=== PATIENT | male | born 1970 | race Caucasian/White ===

== ENCOUNTER → 2023-04-10 13:49 | Outpatient (CLI) | payer MEDICAID, SELFPAY ==
--- NOTE | 2023-04-10 13:50 | CT_ITS ---
FINAL REPORT TECHNIQUE: Axial images were obtained from the lung apex to the mid abdomen by computed tomography. This study was performed with techniques to keep radiation doses as low as reasonably achievable (ALARA). Individualized dose reduction techniques using automated exposure control or adjustment of mA and/or kV according to the patient's size were employed. CLINICAL HISTORY: lung cancer screening CURRENT SMOKER 1/2PPD X50 YEARS FINDINGS: CHEST CT LOW DOSE CTDI vol (mGy): 2.90 DLP (mGy-cm): 92.99 There is no axillary adenopathy. There are several borderline size mediastinal nodes. The heart is normal in size. There is no pericardial or pleural effusion. There are changes of mild emphysema and scarring. There is a calcified granuloma in the right lower lobe. There is a nodule in the right major fissure measuring 8 mm, favor an intra fissural node. Limited images of the upper abdomen are unremarkable. IMPRESSION: Lung RADS category 1. Recommend 12 month follow-up low-dose chest CT. Reviewed, Interpreted and Dictated by Wali Owens III, MD Transcribed by Kaitlin Del Toro Authenticated and [facility]
== END ==
PROVIDERS: PCP Family Medicine; Visit Provider Internal Medicine Pulmonary Disease
DX: Z87.891 Personal history of nicotine dependence (principal); Z12.2 Encounter for screening for malignant neoplasm of respiratory organs
CPT/HCPCS: 71271

== ENCOUNTER 2023-10-21 12:18 | Outpatient (CLI) | payer MEDICAID, SELFPAY ==
[2023-10-21 13:10] VITALS: PULSE 71; PULSE 76
[2023-10-21] MEDS: ALBUTEROL 0.083% 2.5 MG/3 ML NEB IH (13:10)
== END 2023-10-21 23:59 ==
LOC: RT 12:19
PROVIDERS: PCP Family Medicine; Visit Provider Internal Medicine Pulmonary Disease
DX: R06.09 Other forms of dyspnea (principal)
CPT/HCPCS: 94060; 94640

== ENCOUNTER 2024-04-24 13:59 | Outpatient (CLI) | payer MEDICAID, SELFPAY ==
--- NOTE | 2024-04-24 14:00 | CT_ITS ---
FINAL REPORT TECHNIQUE: Axial images were obtained from the lung apex to the mid abdomen by computed tomography. This study was performed with techniques to keep radiation doses as low as reasonably achievable (ALARA). Individualized dose reduction techniques using automated exposure control or adjustment of mA and/or kV according to the patient's size were employed. CLINICAL HISTORY: lung cancer screening SMOKER, 1 PK PER DAY X 51 YRS COPD FAMILY HX OF LUNG CA COMPARISON: 04/10/2023 FINDINGS: CHEST CT LOW DOSE CTDI vol (mGy): 2.90 DLP (mGy-cm): 108.64 There is no axillary adenopathy. There is no hilar or mediastinal adenopathy. The heart is normal in size. There is no pericardial or pleural effusion. There is an oval nodule in the right mid lung along the major fissure well seen on image 43 measuring 5 x 3 mm. This is decreased in size compatible with intra fissural lymph node. There is a smaller similar-appearing nodule in the upper portion of the left major fissure, stable. No suspicious pulmonary nodule is identified. Limited images of the upper abdomen reveals a 10 mm left adrenal nodule with density compatible with a benign adenoma. IMPRESSION: No suspicious pulmonary nodule. Lung RADS category 1. Recommend 12 month follow-up low-dose chest CT. Reviewed, Interpreted and Dictated by Bob Lacy MD Transcribed by Kaitlin Del Toro Authenticated and [facility]
[2024-04-24] MEDS: ALBUTEROL 0.083% 2.5 MG/3 ML NEB IH (16:11)
== END 2024-04-24 23:59 | disposition home or self-care (01) ==
LOC: RAD 14:00
PROVIDERS: PCP Internal Medicine Pulmonary Disease; Visit Provider Internal Medicine Pulmonary Disease
DX: F17.210 Nicotine dependence, cigarettes, uncomplicated (principal)
CPT/HCPCS: 71271; 94060; 94726; 94729; J7613

== ENCOUNTER 2024-07-31 14:25 | Outpatient (CLI) | payer MEDICAID, SELFPAY ==
--- NOTE | 2024-07-31 14:29 | CT_ITS ---
FINAL REPORT TECHNIQUE: Axial imaging of the chest was obtained without contrast. Supine inspiration and expiration sequences and prone inspiration high-resolution sequences were obtained. This study was performed with techniques to keep radiation doses as low as reasonably achievable (ALARA). Individualized dose reduction techniques using automated exposure control or adjustment of mA and/or kV according to the patient's size were employed. CLINICAL HISTORY: nodule COMPARISON: 04/24/2024 FINDINGS: There are small and borderline mediastinal lymph nodes. There is no mediastinal or axillary mass. There is no pleural or pericardial effusion. There is mild emphysematous change. Mild scarring is seen. There is a calcified granuloma in the right lower lobe. There is a nodule at the right major fissure measuring 7 mm which is stable. Findings may represent intrafissural lymph node. There is no significant interstitial lung disease or bronchiectasis. There is no evidence of air trapping. Limited imaging of the upper abdomen demonstrates a left adrenal adenoma. There are small, nonobstructing renal stones. IMPRESSION: Stable 7 mm nodule at the right major fissure, findings may represent an intrafissural lymph node. No significant interstitial lung disease, bronchiectasis or evidence of air trapping. Reviewed, Interpreted and Dictated by Wali Owens III, MD Transcribed by Eveline Romero Authenticated and [facility]
== END 2024-07-31 23:59 | disposition home or self-care (01) ==
PROVIDERS: PCP Family Medicine; Visit Provider Internal Medicine Pulmonary Disease
DX: J84.9 Interstitial pulmonary disease, unspecified (principal); R91.1 Solitary pulmonary nodule; R06.02 Shortness of breath; F17.210 Nicotine dependence, cigarettes, uncomplicated
CPT/HCPCS: 71250

== ENCOUNTER 2025-04-26 15:30 | Outpatient (CLI) | payer MEDICAID, SELFPAY ==
--- NOTE | 2025-04-26 15:35 | CT_ITS ---
FINAL REPORT TECHNIQUE: Axial images were obtained from the lung apex to the mid abdomen by computed tomography. This study was performed with techniques to keep radiation doses as low as reasonably achievable (ALARA). Individualized dose reduction techniques using automated exposure control or adjustment of mA and/or kV according to the patient's size were employed. CLINICAL HISTORY: lung cancer screening current smoker 1ppd x 46 years COMPARISON: 04/24/2024 FINDINGS: CHEST CT LOW DOSE CTDI vol (mGy): 2.90 DLP (mGy-cm): 96.38 There are mildly prominent mediastinal lymph nodes, stable. The heart is normal in size. There is no pericardial or pleural effusion. There is emphysema. There is a 3 mm left lower lobe pulmonary nodule seen on series 4, image 49 which is new. Several nodules are seen along the right major fissure which are stable, likely intrafissural lymph nodes. There are 2 pulmonary nodules in the right lung with central cavitation. One in the right upper lobe seen on image 31 measures 8 x 8 mm. Lesion in the right lower lobe measures 5 mm and is well-seen on image 48. The lungs are otherwise clear. Limited images of the upper abdomen are unremarkable. IMPRESSION: Several new nodules, some of which have central cavitation, favor infectious or inflammatory. Lung RADS category 0. Recommend 3-month diagnostic chest CT. Reviewed, Interpreted and Dictated by Cathy Chaney MD Transcribed by Kaitlin Del Toro Authenticated and [facility]
--- OUTSIDE RECORDS SUMMARY | 2025-04-26 15:35 | XMS_ITS | Encounter Summary ---
[facility] Address [address] [place] [address] Care Team Providers Care Soap Drier Operator Name Role Phone Doron Aparicio MD Primary Care Provider [phone] Reason for Visit * Reason Comments Med Refill Encounter Details Date Type Department Care Team (Late st Contact Info) Description 05/17/2023 Refill [facility] [address] [place] [address] Kelsie Landeros, WIRE DRAWING MACHINE TENDER [address] [place] [address] Med Refill Social History Tobacco Use Types Packs/Day Years Used Date Smoking Tobacco: Former Cigarettes 973 - 2002 Passive Smoke Exposure: Current Smokeless Tobacco: Never Alcohol Use Standard Drinks/Week Comments Defer 0 (1 standard drink = 0.6 oz pur e alcohol) Sex and Gender Information Value Date Recorded Sex Assigned at Not on file Legal Sex Male 9:23 AM EDT Gender Identity Not on file Sexual Orientation Not on file documented as of this encounter Plan of Treatment Upcoming Encounters Date Type Department Care Team (Late st Contact Info) Description 08/11/2025 11:30 AM EST Office Visit [facility] [address] [place] [address] Fouzia Tinoco APRN [address] [place] [address] documented as of this encounter Visit Diagnoses Not on filedocumented in this encounter Care Teams Soap Drier Operator Relationship Specialty Start Date End Date Doron Aparicio MD [facility] [place] [address] [place] [address] PCP - General Family Medicine 04/16/23 documented as of this encounter
--- OUTSIDE RECORDS SUMMARY | 2025-04-26 15:35 | XMS_ITS | Clinical Summary ---
[facility] [address] [place] [address] Care Team Providers Care Ostomy Care Nurse Name Role Phone Doron Aparicio MD Primary Care Provider [phone] Allergies Active Allergy Reactions Criticality Noted Date Comments Losartan Cough Low 04/16/2023 Medications metFORMIN (GLUCOPHAGE) 500 MG tablet Take 2 tablets by mouth Every 12 (Twelve) Hours. 3 Active meclizine (ANTIVERT) 25 MG tablet TAKE 1/2-1 Tablet by mouth every 8 hours 3 Active Ventolin HFA 108 (90 Base) MCG/ACT inhaler INHALE 2 PUFFS four times a day As Needed for shortness of breath or wheezing 3 Active alfuzosin (UROXATRAL) 10 MG 24 hr tablet take 1 tablet immediately after the same meal Once a day 3 Active carbidopa-levod opa (SINEMET) 10-100 MG per tablet Take 1 tablet by mouth every night at bedtime. 3 Active Cholecalciferol (Vitamin D3) 1.25 MG (79736 UT) capsule Take 1 capsule by mouth 1 (One) Time Per Week. 3 Active dicyclomine (BENTYL) 10 MG capsule Take 1 capsule(s) by mouth 4 times daily as needed for pain 3 Active finasteride (PROSCAR) 5 MG tablet Take 1 tablet every day by oral route. 3 Active gabapentin (NEURONTIN) 600 MG tablet Take 1 tablet by mouth Every 12 (Twelve) Hours. 3 Active glycopyrrolate (ROBINUL) 2 MG tablet Take 1 Tablet by mouth once a day at bedtime 3 Active ipratropium-alb uterol (DUO-NEB) 0.5-2.5 mg/3 ml nebulizer USE 3 mL VIA NEBULIZER four times a day As Needed for shortness of breath or wheezing 3 Active lactulose (CHRONULAC) 10 GM/15ML solution take 15 ml by mouth daily (30 Days Qty 450 FOUR HUNDRED FIFTY)] 3 Active Lancets (OneTouch Delica Plus [id number]) misc 3 (Three) Times a Day. as directed 3 Active methocarbamol (ROBAXIN) 750 MG tablet Take 1 tablet by mouth 3 (Three) Times a Day As Needed. for pain 3 Active montelukast (SINGULAIR) 10 MG tablet Take 1 tablet by mouth Daily. 3 Active Stiolto Respimat 2.5-2.5 MCG/ACT aerosol solution inhaler Inhale 2 puffs Daily. 3 Active topiramate (TOPAMAX) 50 MG tablet Take 1 tablet by mouth Every Night. 3 Active traZODone (DESYREL) 100 MG tablet TAKE ONE TABLET BY MOUTH DAILY AT BEDTIME NEEDED FOR SLEEP 3 Active baclofen (LIORESAL) 10 MG tablet take 1 Tablet by mouth every 8 hours NEEDED FOR headache or muscle pain Active celecoxib (CeleBREX) 200 MG capsule 1 {capsule} by oral route. Active cyclobenzaprine (FLEXERIL) 10 MG tablet TAKE ONE TABLET BY MOUTH THREE TIMES DAILY NEEDED FOR SPASM Active polyethylene glycol (MIRALAX) 17 GM/SCOOP powder Take 17 g by oral route for 1 day. 3 Active promethazine (PHENERGAN) 25 MG tablet Take 1 tablet by mouth Every 6 (Six) Hours As Needed. Active OneTouch Ultra test strip 3 (Three) Times a Day. as directed 4 Active diclofenac (VOLTAREN) 75 MG EC tablet Take 1 tablet by mouth Every 12 (Twelve) Hours. 4 Active hydrOXYzine (ATARAX) 25 MG tablet Take 1 tablet by mouth Every 8 (Eight) Hours. 4 Active ibuprofen (ADVIL,MOTRIN) 800 MG tablet Take 1 tablet by mouth 3 times a day. 4 Active Linzess 145 MCG capsule capsule Take 1 capsule by mouth Daily. 4 Active meloxicam (MOBIC) 15 MG tablet Take 1 tablet by mouth Daily. 4 Active naloxone (NARCAN) 4 MG/0.1ML nasal spray use 1 Actuation in the nose as directed as needed for opioid overdose; continue every 2-3 min in alternating nostrils till responsive or EMS arrives 4 Active pioglitazone (ACTOS) 15 MG tablet Take 1 tablet by mouth Daily. 4 Active amLODIPine (NORVASC) 2.5 MG tablet Take 1 tablet by mouth Daily. 90 tablet 1 5 Active atorvastatin (LIPITOR) 40 MG tablet Take 1 tablet by mouth Every Evening. 90 tablet 1 5 Active fenofibrate micronized (LOFIBRA) 134 MG capsule Take 1 capsule by mouth Daily. 90 capsule 1 5 Active losartan (COZAAR) 25 MG tablet Take 1 tablet by mouth Daily. 90 tablet 1 5 Active metoprolol succinate XL (TOPROL-XL) 25 MG 24 hr tablet Take 1 tablet by mouth Daily. 90 tablet 1 5 Active Active Problems Problem Noted Date Diagnosed Date Preop cardiovascular exam 08/12/2024 Assessment & Plan (08/12/2024 9:32 PM EST): Acceptable cardiac risk for procedure. CC form completed and given to Irena at front desk admin. Dental caries 10/22/2023 Lung nodule 10/22/2023 Mediastinal lymphadenopathy 10/22/2023 Sensorineural hearing loss (SNHL) of both ears 0 10/22/2023 Smoking greater than 30 pack years 10/22/2023 Subjective tinnitus of both ears 10/22/2023 Tobacco abuse 10/22/2023 EVELIO (obstructive sleep apnea) 04/16/2023 Assessment & Plan (02/09/2025 12:24 PM EDT): Here reports he is using his machine faithfully. No download available today. Benefiting from PAP therapy. Plan to continue. Assessment & Plan (08/12/2024 9:30 PM EST): Not using his CPAP at this time. Will need EVELIO precautions with surgery. Hypertensive disorder 06/26/2022 Assessment & Plan (02/09/2025 12:23 PM EDT): Goal less than 130/80. He is under 140/90 but not at goal. Will continue to monitor. A lot of stress right now at home. EKG is up-to-date. Gastroesophageal reflux disease 06/26/2022 Arthritis 06/26/2022 Asthma 06/26/2022 Benign prostatic hyperplasia 06/26/2022 Diabetes mellitus without complication Hypercholesterolemia 06/26/2022 Assessment & Plan (02/09/2025 12:23 PM EDT): Existing diabetes. On atorvastatin 40 mg daily as well as fenofibrate 134 mg daily. Patient reports he had labs 3 weeks ago at [facility]. Will try to get a copy of those. Otherwise his labs were April 2024 and will not be due again until April of this year. 05/20/2024 labs-cholesterol 163, triglycerides 76, HDL 39, LDL 109. Sodium, potassium, creatinine normal. eGFR 68. Hemoglobin A1c 5.4%. Hyperlipidemia is managed by PCP. Severe chronic obstructive pulmonary disease Resolved Problems Problem Noted Date Diagnosed Date Resolved Date Abdominal pain 10/22/2023 10/22/2023 Acute otitis externa 10/22/2023 024 Bilateral impacted cerumen 10/22/2023 0 10/22/2023 Impacted cerumen 10/22/2023 10/22/2023 Tobacco abuse counseling 10/22/2023 Urinary tract infectious disease 10/22/2023 10/22/2023 Urinary bladder stone 06/26/20222023 Encounters Date Type Department Care Team Description 02/09/2025 11:30 AM EDT Office Visit [facility] [address] [place], [place] [address] Fouzia Tinoco APRN EVELIO (obstructive sleep apnea) (Primary Dx); Primary hypertension; Hypercholesterolemia 02/09/2025 Travel 01/30/2025 Refill [facility] [address] [place] [address] Kerline Hunter APRN Med Refill from Last 3 Months Family History Medical History Relation Name Comments Heart attack Father Relation Name Status Comments Brother 2 Alive Father Mother Sister 3 Alive Social History Tobacco Use Types Packs/Day Years Used Date Smoking Tobacco: Former Cigarettes 30 1 973 - 2002 Passive Smoke Exposure: Current Smokeless Tobacco: Never Tobacco Cessation:Counseling Given: Not Answered Alcohol Use Standard Drinks/Week Comments Defer 0 (1 standard drink = 0.6 oz pur e alcohol) Sex and Gender Information Value Date Recorded Sex Assigned at Not on file Legal Sex Male 9:23 AM EDT Gender Identity Not on file Sexual Orientation Not on file Last Filed Vital Signs Vital Sign Reading Time Taken Comments Blood Pressure 134/74 02/09/2025 11:32 AM EDT Pulse 66 02/09/2025 11:32 AM EDT Temperature - - Respiratory Rate - - Oxygen Saturation 99% 02/09/2025 11:32 AM EDT Inhaled Oxygen Concentration - - Weight 70.9 kg (156 lb 3.2 oz) 02/09/2025 11:32 AM EDT Height 167.6 cm (5' 6 ) 02/09/2025 11:32 AM EDT Body Mass Index 25.21 02/09/2025 11:32 AM EDT Plan of Treatment Upcoming Encounters Date Type Department Care Team (Late st Contact Info) Description 08/11/2025 11:30 AM EST Office Visit [facility] [address] [place] [address] Fouzia Tinoco APRN [address] [place] [address] Health Maintenance Due Date Last Done Comments DIABETIC EYE EXAM 1979 DIABETIC FOOT EXAM 1979 URINE MICROALBUMIN-CREATININ E RATIO (uACR) 1979 Hepatitis B (1 of 3 - 19+ 3- dose series) 1988 Pneumococcal Vaccine 50+ (1 of 2 - PCV) 1988 TDAP/TD VACCINES (1 - Tdap) 1988 COLOGUARD 2014 COLON CANCER SCREENING 5 YEA R SIGMOIDOSCOPY 2014 COLONOSCOPY 2014 [address]AL CANCER SCREENING 2014 CT COLONOGRAPHY 2014 FECAL OCCULT BLOOD TEST 2014 FIT Testing (1 year) 2014 ANNUAL PHYSICAL 01/17/2017 HEPATITIS C SCREENING 01/17/2017 ZOSTER VACCINE (1 of 2) 2019 HEMOGLOBIN A1C 11/23/2023 05/23/2023 LIPID PANEL 05/23/2024 05/23/2023 COVID-19 Vaccine ( season) 2024 08/02/2021, 02/10/2021, 12/13/2020 INFLUENZA VACCINE 06/30/2025 11/20/2024 Procedures Procedure Name Priority Date/Time Associated Diagnosis Comments SCANNED - LABS 01/27/2025 SCANNED - IMAGING 01/27/2025 HEMOGLOBIN A1C Routine 05/23/2023 EVELIO (obstructive sleep apnea) LIPID PANEL Routine 05/23/2023 EVELIO (obstructive sleep apnea) from Last 3 Months or Most Recently Relevant to Health Maintenance Results * IMAGING SCANNED (01/27/2025) Anatomical Region Laterality Modality Radiographic Dejah ging us Mira Sosa MD IMG DIAGNOSTIC IMAGING ORDER MICHELLE Final Result * LABS SCANNED (01/27/2025) us Mira Sosa MD LAB BLOOD ORDERABLES Final R esult * Hemoglobin A1c (05/23/2023) Blood Fouzia Tinoco APRN LAB BLOOD ORDERABLE S Final Result [facility] (AMBULATORY) [address] [place] [address], [place] [phone] * Lipid Panel (05/23/2023) Blood Fouzia Lili Earnest TORTS LAW PROFESSOR LAB BLOOD ORDERABLE S Final Result [facility] (AMBULATORY) [address] [place] [address], [place] [phone] from Last 3 Months or Most Recently Relevant to Health Maintenance Insurance [employer] [place]ICAID [place] Care Teams Ostomy Care Nurse Relationship Specialty Start Date End Date Doron Aparicio MD [address] [facility] [facility] [address] PCP - General Family Medicine 04/16/23
== END 2025-04-26 23:59 | disposition home or self-care (01) ==
LOC: RAD 15:31
PROVIDERS: PCP Family Medicine; Visit Provider Internal Medicine Pulmonary Disease
DX: Z12.2 Encounter for screening for malignant neoplasm of respiratory organs (principal); R91.8 Other nonspecific abnormal finding of lung field; F17.210 Nicotine dependence, cigarettes, uncomplicated
CPT/HCPCS: 71271

== ENCOUNTER 2025-05-03 13:48 | Outpatient (CLI) | payer MEDICAID, SELFPAY ==
--- OUTSIDE RECORDS SUMMARY | 2025-05-03 13:51 | XMS_ITS | Encounter Summary ---
[facility] Address [address] [place] [address] Care Team Providers Care Elevator Installer Name Role Phone Doron Aparicio MD Primary Care Provider [phone] Reason for Visit * Reason Comments Med Refill Encounter Details Date Type Department Care Team (Late st Contact Info) Description 05/17/2023 Refill [facility] [address] [place] [address] Kelsie Landeros, CHILD CARE EDUCATION COORDINATOR [address] [place] [address] Med Refill Social History Tobacco Use [...] Description 08/11/2025 11:30 AM EST Office Visit [facility] [address] [place] [address] Fouzia Tinoco APRN [address] [place] [address] documented as of this encounter Visit Diagnoses Not on filedocumented in this encounter Care Teams Elevator Installer Relationship Specialty Start Date End Date Doron Aparicio MD [facility] [place] [address] [place] [address] PCP - General Family Medicine 04/16/23 documented as of this encounter
--- OUTSIDE RECORDS SUMMARY | 2025-05-03 13:51 | XMS_ITS | Clinical Summary ---
[facility] Address [address] [place] [address] Care Team Providers Care Ruby On Rails Web Developer Name Role Phone Doron Aparicio MD Primary Care Provider [phone] Allergies Active Allergy Reactions Criticality Noted Date [...] 3 Active Cholecalciferol (Vitamin D3) 1.25 MG (16173 UT) capsule Take 1 capsule by mouth [...] FIFTY)] 3 Active Lancets (OneTouch Delica Plus [id number]) misc 3 (Three) Times a Day. as [...] form completed and given to Irena at tennis desk team member. Dental caries 10/22/2023 Lung nodule 10/22/2023 Mediastinal [...] he had labs 3 weeks ago at [facility]. Will try to get a copy of [...] Description 02/09/2025 11:30 AM EDT Office Visit [facility] [address] [place], [place] [address] Fouzia Tinoco APRN EVELIO (obstructive sleep apnea) (Primary Dx); Primary hypertension; Hypercholesterolemia 02/09/2025 Travel from Last 3 Months Family History Medical History Relation Name Comments Heart attack Father Relation Name Status Comments Brother 2 Alive Father Mother Sister 3 Alive Social History Tobacco Use Types Packs/Day Years Used Date Smoking Tobacco: Former Cigarettes 1 30 1 973 - 2002 Passive Smoke [...] Description 08/11/2025 11:30 AM EST Office Visit [facility] [address] [place] [address] Fouzia Tinoco APRN [address] [place] [address] Health Maintenance Due Date Last Done [...] Procedure Name Priority Date/Time Associated Diagnosis Comments HEMOGLOBIN A1C Routine 05/23/2023 EVELIO (obstructive sleep apnea) LIPID PANEL Routine 05/23/2023 EVELIO (obstructive sleep apnea) from Last 3 Months or Most Recently Relevant to Health Maintenance Results * Hemoglobin A1c (05/23/2023) Blood [facility] Lili Tinoco BUTT WELDER LAB BLOOD ORDERABLE S Final Result Performing Organization Address [facility] de Phone Number [facility] [address] [place] [address], [place] [phone] * Lipid Panel (05/23/2023) Blood Fouzia Tinoco BUTT WELDER LAB BLOOD ORDERABLE S Final Result Performing Organization Address [facility] de Phone Number [facility] (AMBULATORY) [address] [place] [address], [place] [phone] from Last 3 Months or Most Recently Relevant to Health Maintenance Insurance [employer] [place] [id number] Care Teams Ruby On Rails Web Developer Relationship Specialty Start Date End Date Doron Aparicio MD [address] [place] [address] PCP - General Family Medicine 04/16/23
[2025-05-03 14:57] LABS: C-Reactive Protein 2.5 mg/L (0-4)
[2025-05-04 13:18] LABS: Antinuclear Antibodies (ANA) Negative (Negative)
== END 2025-05-03 23:59 | disposition home or self-care (01) ==
LOC: LAB 13:49
PROVIDERS: PCP Family Medicine; Visit Provider Internal Medicine Pulmonary Disease
DX: J84.9 Interstitial pulmonary disease, unspecified (principal)
CPT/HCPCS: 36415; 86038; 86140; 86480

== ENCOUNTER 2025-08-05 10:40 | Outpatient (CLI) | payer MEDICAID, SELFPAY ==
--- OUTSIDE RECORDS SUMMARY | 2025-06-17 02:58 | XMS_ITS | Continuity of Care Document ---
Author Organization [facility] Phone Care Team Providers Care Culinary Intern Name Role Phone BOB OWENS Unavailable BOB OWENS Admitting SUSANNE OWENS Primary Care BOB OWENS Primary Attending ALLERGIES AND ADVERSE REACTIONS ALLERGIES AND ADVERSE REACTIONS Code System Allergy Substance Adverse Reaction Date Reaction (Severity) Comment Status Reported By Updated By No Known Allergies [email or web address] on 2025 9:46:40 PM [facility] FAMILY HISTORY RELATION: Father Status: LIVING SNOMED-CT Diagnosis Age At Onset [id number] Hypertensive disorder RELATION: Father Status: LIVING SNOMED-CT Diagnosis Age At Onset [id number] Heart disease [id number] Malignant neoplasm of skin RELATION: Mother Status: LIVING SNOMED-CT Diagnosis Age At Onset [id number] Diabetes mellitus [id number] Hypertensive disorder RELATION: Mother Status: LIVING SNOMED-CT Diagnosis Age At Onset [id number] Malignant neoplastic disease [id number] Diabetes mellitus [id number] Chronic obstructive lung disease [id number] Hypertensive disorder RESULTS Patient: JULIA Yi Date of : [birth year] LABORATORY RESULTS Information is not available LABORATORY NARRATIVE RESULTS Information is not available RADIOLOGY RESULTS ORDER 100: HAND RT 3V (LOINC : [id number]) ORDER DATE: June 15, 2025 5:17:00 PM [facility] PERFORMING LAB: [address] [id number] Final Result Date: June 15, 2025 5:29:39 PM [address] [place] [address] Name: WILIAN DUMONT Exam Date: 06/15/2025 : 1970 Age 55 years Gender: M Physician: BOB OWENS Facility: [facility] Facility HSV: Outpatient Exam: HAND RT 3V EXAMINATION: XR HAND 3 OR MORE VIEWS RIGHT HISTORY: pain. COMPARISON: None. FINDINGS: 3 views of the right hand demonstrate no evidence of a fracture, dislocation, or other acute osseous abnormality. Small punctate radiopaque foreign bodies are seen along the dorsal margin of the base of the middle phalanx of the right second digit. IMPRESSION: No acute abnormality. Electronically signed by: Dominic Barroso MD 06/15/2025 02:44 PM EDT RP Dictated By: Dominic Barroso Transcribed By: Transcribed On: 06/15/2025 1:29 PM Electronically signed by: Dominic Barroso 06/15/2025 Thank you for referring WILIAN DUMONT to [facility]. Legally authenticated by BRITT LAI MD 2025-06-15 13:29:39 ORDER 200: WRIST 3V RT (LOIN C: [id number]) ORDER DATE: June 15, 2025 5:17:00 PM [facility] PERFORMING LAB: [address] [id number] Final Result Date: June 15, 2025 5:29:43 PM [address] [place] [address] Name: WILIAN DUMONT Exam Date: 06/15/2025 : 1970 Age 55 years Gender: M Physician: BOB OWENS Facility: [facility] Facility HSV: Outpatient Exam: WRIST 3V RT EXAM: XR WRIST 3 OR MORE VIEWS RIGHT HISTORY: pain. COMPARISON: None. FINDINGS: 3 views of the right wrist demonstrate normal alignment with no evidence of a fracture, dislocation, or other acute osseous abnormality. IMPRESSION: Normal right wrist. Electronically signed by: Dominic Barroso MD 06/15/2025 02:43 PM EDT RP Dictated By: Dominic Barroso Transcribed By: Transcribed On: 06/15/2025 1:29 PM Electronically signed by: Dominic Barroso 06/15/2025 Thank you for referring JULIA WILIAN to [facility]. Legally authenticated by BRITT LAI MD 2025-06-15 13:29:43 PATHOLOGY NARRATIVE RESULTS Information is not available MICROBIOLOGY RESULTS No Micro Labs/Results Exist for Patient BLOOD ADMIN RESULTS Information is not available MEDICATIONS HOME MEDICATIONS Status RXNORM NDC Medication Dose Route Frequency Dates Comments Reported By Updated By Drug Treatment Unknown DISCHARGE MEDICATIONS Status RXNORM NDC Medication Dose Route Frequency Dates Dis pense Data Comments Physician Updated By No Discharge Medication Info rmation Available INPATIENT MEDICATIONS Status RXNORM NDC Medication Dose Route Frequency Rat e Quantity Dates Indication Dispense Data Comments Physician Updated By No Inpatient Medication Info rmation Available SOCIAL HISTORY SOCIAL HISTORY - Smoking Status SNOMED-CT Social History Element Description Effective Dates Offered Cessation Comment Updated By [id number] Historical Tobacco smoking status Current Every Day Smoker [id number] on 2025 9:11:20 PM [facility] SOCIAL HISTORY - Gender Sex: Male SOCIAL HISTORY - Status : status i nformation is not available Intention in Next Year: intention information is not available SOCIAL HISTORY - Assessments Code System Description Status Date Value of Assessment Updated By Comment Assessment Information is no t available SOCIAL HISTORY - [place] Affiliation [place] information is not av ailable SOCIAL HISTORY - Legal Sex Legal Sex information is not available SOCIAL HISTORY - Sexual Behavior Sexual Orientation Gender Identity SNOMED-CT Description SNO MED -CT Description Activity Level No of Partners Partner Type UpdatedBy Information is not available SOCIAL HISTORY - Occupation Occupation information is no t available HEALTH CONCERNS Problems Concern Status Health Concern problem infor mation not available. Smoking Status Status Years Used Consumed packs p er day Health Concern smoking histo ry information not available. Family History Concern Status Health Concern family histor y information not available. ENCOUNTERS ENCOUNTER INFORMATION Reason for Visit M25.561 Admission June 15, 2025 5:03:00 PM [facility] [address] [id number] Discharge June 15, 2025 5:03:00 PM [facility] DISCHARGED TO HOME OR SELF CARE ENCOUNTER DIAGNOSES Notes information is not mike ilable. Code System Diagnosis Onset Date Diagnosis information is not available. ABSTRACT DIAGNOSES Code System Diagnosis Updated By Abatement Date M25.531 ICD10 PAIN IN RIGHT WRIST [id number] on June 17, 2025 7:58:27 AM [place] M25.531 ICD10 PAIN IN RIGHT WRIST [id number] on June 17, 2025 7:58:30 AM [facility] CARE TEAM Care Culinary Intern Role BOB OWENS Referring BOB OWENS Admitting SUSANNE OWENS Primary Care BOB OWENS Primary Attending CARE TEAM CARE intelligence operations Role on Team Location Telecom Status Start Date End Minesh e Updated By GRACIELA ROJAS MD Referring normal June 15, 2025 4:00:00 AM [facility] June 15, 2025 5:03:00 PM UT [id number] on June 15, 2025 5:07:11 PM [facility] ROMAN SKINNER MD Y PCP normal June 15, 2025 4:00:00 AM [facility] June 15, 2025 5:03:00 PM UTC [id number] on June 15, 2025 5:07:11 PM [facility] GRACIELA ROJAS MD Attending normal June 15, 2025 4:00:00 AM [facility] June 15, 2025 5:03:00 PM UT [id number] on June 15, 2025 5:07:11 PM [facility] GRACIELA ROJAS MD Admitting normal June 15, 2025 4:00:00 AM [facility] June 15, 2025 5:03:00 PM UTC [id number] on June 15, 2025 5:07:11 PM [facility]
--- OUTSIDE RECORDS SUMMARY | 2025-08-05 10:53 | XMS_ITS | Encounter Summary ---
[facility] [address] [place] [address] Care Team Providers Care Spectroscopist Name Role Phone Doron Aparicio MD Primary Care Provider [phone] Reason for Visit * Reason Comments Med Refill Encounter Details Date Type Department Care Team (Late st Contact Info) Description 05/17/2023 Refill [facility] [address] [id number] Kelsie Landeros, [employer] Med Refill Social History Tobacco Use Types [...] Description 08/11/2025 11:30 AM EST Office Visit [facility] [address] [id number] Fouzia Tinoco APRN [address] [place] [address] documented as of this encounter Visit Diagnoses Not on filedocumented in this encounter Care Teams Spectroscopist Relationship Specialty Start Date End Date Doron Aparicio MD [address] [place] [address] PCP - General Family Medicine 04/16/23 documented as of this encounter
--- OUTSIDE RECORDS SUMMARY | 2025-08-05 10:53 | XMS_ITS | Data Portability ---
Author Organization [facility] ADMIN Address [address] [place] [id number] Assessment No assessment recorded. Plan of Treatment Reminders Order Date Submit Date Provider Last Modified By Organization Details Last Modified Time Details Appointments None recorded. Lab culture, urine + sensitivity 2021 [id number] [facility] (Lab Registration) , [address] [place] [address] [place], [address], 07:53:08 Referral None recorded. Procedures bladder scan (PROC) 2021 022 [id number] [facility], [address] [place] [address], [id number], 06:20:54 Surgeries None recorded. Imaging None recorded. Medication Orders levofloxaci n 500 mg tablet 2021 [facility], [address] [place] [address], [id number], 12:41:30 alfuzosin ER 10 mg tablet,exte nded release 24 hr 2021 [facility], [address] [place] [address], [id number], 12:01:31 Patient TargetsNo targets recorded. Patient InstructionsNo instructions recorded. Reason for Referral None Reported. Results Created Date Observation Date Name Description Value Unit Range Abnormal Flag Note LastModifiedBy Organization Detail LastModifiedTime 06/26/20 22 06/26/2022 CULTU RE URINE W PRESU MP ID results RKM 06-27 1237 [place] te:1 >100, 000 Colon y Count Coagu lase Negat george Staph yloco ccus Not Available [facility] (Pre-Op Clinic) [address] [place] [address] [place], [address], 06/27/2022 12:40:00 06/26/20 22 06/26/2022 CULTU RE URINE W PRESU MP ID note Unles s other rios noted testi ng perfo rmed at: [facility] [address] [place] [address] Jonnathan paz MD Not Available [facility] (Pre-Op Clinic) [address] [place] [address] [place], [address], 06/27/2022 12:40:00 06/26/20 22 06/26/2022 CULTU RE URINE W PRESU MP ID culur ===== ===== ===== ===== ===== ===== ===== ===== ===== ===== ===== ===== ===== ===== ===== ===== ===== ===== ===== ===== ===== ===== ===== ===== CULTU RE NO.: [id number] Exam Statu s: Final Exam Type: CULTU RE URINE W PRESU ===== ===== ===== ===== ===== ===== ===== ===== ===== ===== ===== ===== ===== ===== ===== ===== ===== ===== ===== ===== ===== ===== ===== ===== Cultu re Repor t: Organ ism #01 Staph yloco ccus epide rmidi s (STAE PI) Antib iotic s STAEP I Achie vable Achie vable (01) Dosag e Serum Level Urine Level mcg/m l mcg/m l BLACT POS P 007R Dapto mycin <=1 S 007R DTEST NEG N 007R Genta micin <=2 S 007R Levof loxac in >4 R 007R Linez olid 2 S 007R Nitro furan toin <=16 S 007R Oxaci llin >1 R 007R Penic illin G >1 R 007R Rifam pin <=0.5 S 007R Vanco mycin 2 S 007R RKM 06-27 1237 [place] te:1 >100, 000 Colon y Count Coagu lase Negat george Staph yloco ccus Not Available [facility] (Pre-Op Clinic) [address] [place] [address] [place], [address], 06/28/2022 09:41:53 06/26/20 22 06/26/2022 CULTU RE URINE W PRESU MP ID note Unles s other rios noted testi ng perfo rmed at: [facility] [address] [place] [address] Jonnathan paz MD Not Available [facility] (Pre-Op Clinic) [address] [place] [address] [place], [address], 06/28/2022 09:41:53 06/26/20 22 06/26/2022 bladd er scan (PROC ) Calculated Residual Urine: 57 ML Not Available [facility] [address] [place], [address], 06/26/2022 13:34:22 08/01/20 22 08/01/2022 BASIC METAB OLIC PANEL sodium 145 mmol/ L 137-14 7 Not Available [facility] (Pre-Op Clinic) [address] [place] [address] [place], [address], 08/01/2022 13:07:32 08/01/20 22 08/01/2022 BASIC METAB OLIC PANEL potassium 4.4 mmol/ L 3.5-5. 1 Not Available [facility] (Pre-Op Clinic) [address] [facility] [place], [address], 08/01/2022 13:07:32 08/01/20 22 08/01/2022 BASIC METAB OLIC PANEL chloride 105 mmol/ L 98-110 Not Available [facility] (Pre-Op [facility]) [address] [facility] [place], [address], 08/01/2022 13:07:32 08/01/20 22 08/01/2022 BASIC METAB OLIC PANEL carbon dioxide 27 mmol/ L 21-30 Not Available [facility] (Pre-Op [facility]) [address] [place] [address] [place], [address], 08/01/2022 13:07:32 08/01/20 22 08/01/2022 BASIC METAB OLIC PANEL anion gap 13 mmol/ L 6-14 Not Available [facility] (Pre[facility]Op [facility]) [address] [place] [address] [place], [address], 08/01/2022 13:07:32 08/01/20 22 08/01/2022 BASIC METAB OLIC PANEL glucose 120 mg/dL 70-115 high Not Available [facility] (Pre-Op [facility]) [address] [place] [address] [place], [address], 08/01/2022 13:07:32 08/01/20 22 08/01/2022 BASIC METAB OLIC PANEL BUN 11 mg/dL 9-20 Not Available [facility] (Pre[facility]Op [facility]) [address] [place] [address] [place], [address], 08/01/2022 13:07:32 08/01/20 22 08/01/2022 BASIC METAB OLIC PANEL creatinine 0.7 mg/dL 0.5-1. 5 Not Available [facility] (Pre[facility]Op [facility]) [address] [place] [address] [place], [address], 08/01/2022 13:07:32 08/01/20 22 08/01/2022 BASIC METAB OLIC PANEL BUN/creatini ne ratio 16 ratio 10-20 Not Available [facility] (Pre[facility]Op [facility]) [address] [place] [address] [place], [address], 08/01/2022 13:07:32 08/01/20 22 08/01/2022 BASIC METAB OLIC PANEL glom filtration rate 125 mL/mi n >60- Not Available [facility] ([facility]Op [facility]) [address] [place] [address] [place], [address], 08/01/2022 13:07:32 08/01/20 22 08/01/2022 BASIC METAB OLIC PANEL osmolality (calculated) 302 mosmo l/kg 275-30 1 high OSMOL ALITY IS A CALCU LATIO N UTILI ZING THE SERUM /PLAS MA SODIU M, GLUCO SE AND UREA NITRO GEN (BUN) LEVEL S. FOR THE MOST ACCUR ATE RESUL T A MEASU RED SERUM OSMOL ALITY IS SUGGE STED. Not Available [facility] (Pre[facility]Op [facility]) [address] [place] [address] [place], [address], 08/01/2022 13:07:32 08/01/20 22 08/01/2022 BASIC METAB OLIC PANEL calcium 9.3 mg/dL 8.5-10 .8 Not Available [facility] ([facility]Op [facility]) [address] [place] [address] [place], [address], 08/01/2022 13:07:32 08/01/20 22 08/01/2022 BASIC METAB OLIC PANEL note Unles s other rios noted testi ng perfo rmed at: [facility] [address] [place] [address] Jonnathan paz MD Not Available [facility] ([facility]Op [facility]) [address] [place] [address] [place], [address], 08/01/2022 13:07:32 10/08/19 23 10/08/2022 BASIC METAB OLIC PANEL sodium 141 mmol/ L 137-14 7 Not Available [facility] ([facility]Op [facility]) [address] [place] [address] [place], [address], 10/08/2022 13:46:27 10/08/19 23 10/08/2022 BASIC METAB OLIC PANEL potassium 4.3 mmol/ L 3.5-5. 1 Not Available [facility] (Pre[facility]Op [facility]) [address] [place] [address] [place], [address], 10/08/2022 13:46:27 10/08/19 23 10/08/2022 BASIC METAB OLIC PANEL chloride 106 mmol/ L 98-110 Not Available [facility] ([facility]Op [facility]) [address] [place] [address] [place], [address], 10/08/2022 13:46:27 10/08/19 23 10/08/2022 BASIC METAB OLIC PANEL carbon dioxide 25 mmol/ L 21-30 Not Available [facility] ([facility]Op [facility]) [address] [place] [address] [place], [address], 10/08/2022 13:46:27 10/08/19 23 10/08/2022 BASIC METAB OLIC PANEL anion gap 10 mmol/ L 6-14 Not Available [facility] ([facility]) [address] [place] [address] [place], [address], 10/08/2022 13:46:27 10/08/19 23 10/08/2022 BASIC METAB OLIC PANEL glucose 126 mg/dL 70-115 high Not Available [facility] ([facility]Op [facility]) [address] [place] [address] [place], [address], 10/08/2022 13:46:27 10/08/19 23 10/08/2022 BASIC METAB OLIC PANEL BUN 13 mg/dL 9-20 Not Available [facility] ([facility]) [address] [place] [address] [place], [address], 10/08/2022 13:46:27 10/08/19 23 10/08/2022 BASIC METAB OLIC PANEL creatinine 0.8 mg/dL 0.5-1. 5 Not Available [facility] ([facility]) [address] [place] [address] [place], [address], 10/08/2022 13:46:27 10/08/19 23 10/08/2022 BASIC METAB OLIC PANEL BUN/creatini ne ratio 16 ratio 10-20 Not Available [facility] ([facility]Op [facility]) [address] [place] [address] [place], [address], 10/08/2022 13:46:27 10/08/19 23 10/08/2022 BASIC METAB OLIC PANEL glom filtration rate 107 mL/mi n >60- Not Available [facility] ([facility]) [address] [place] [address] [place], [address], 10/08/2022 13:46:27 10/08/19 23 10/08/2022 BASIC METAB OLIC PANEL osmolality (calculated) 295 mosmo l/kg 275-30 1 OSMOL ALITY IS A CALCU LATIO N UTILI ZING THE SERUM /PLAS MA SODIU M, GLUCO SE AND UREA NITRO GEN (BUN) LEVEL S. FOR THE MOST ACCUR ATE RESUL T A MEASU RED SERUM OSMOL ALITY IS SUGGE STED. Not Available [facility] ([facility]) [address] [place] [address] [place], [address], 10/08/2022 13:46:27 10/08/19 23 10/08/2022 BASIC METAB OLIC PANEL calcium 9.5 mg/dL 8.5-10 .8 Not Available [facility] ([facility]) [address] [place] [address] [place], [address], 10/08/2022 13:46:27 10/08/19 23 10/08/2022 BASIC METAB OLIC PANEL note Unles s other rios noted testi ng perfo rmed at: [facility] [address] [place] [address] Jonnathan paz MD Not Available [facility] ([facility]) [address] [place] [address] [place], [address], 10/08/2022 13:46:27 10/12/19 23 10/12/2022 candi mejia am No observ ation record ed. [email or web address] [facility] Records [address] [place] [address] [place], [address], 10/16/2022 08:11:37 10/29/19 24 10/29/2023 audio gram No observ ation record ed. [email or web address] Not Available 2023 09:34:54 Result Notes None recorded. Problems Name Problem SNOMED Code Status Onset Date Resolution Date Notes Provider Name and Address Organization Details Recorded Time Dental caries 06971814 Active Erin Panch[place] null, [place] - [facility] - [place] & [place] 2 10:54:17 Otomycosis 17666281 Active Erin P[place] [facility] [place] [facility] [place] 2 10:54:17 Urinary tract infectious disease 80883691 Active Erin P[place] [facility] [place] [facility] [place] 2 10:54:17 Injury of neck 64420657 Active Erin [place] [facility] [place] 2 10:54:17 Acute otitis externa 90441203 Active Erin P[place] [facility] [place] [facility] [place] 2 10:54:17 Otalgia of left ear 1235843606 Active Erin P[place] [facility] [place] [facility] [place] 2 10:54:17 Impacted cerumen 54077342 Active [place] [facility] & [place] 2 10:54:17 Bilateral subjective tinnitus of ears 3413377777783 104 Active Erin Panch[place] [facility] [place] [facility] [place] 2 10:54:17 Impacted cerumen of bilateral ears 2536930596838 108 Active Erin Panch[place] [facility] [place] [facility] [place] 2 10:54:17 Impotence of organic origin Active Erin Abdulkadirar [place] [facility] [place] [facility] & [place] 2 10:54:17 Diabetes mellitus without complicatio n 375906405 Active Erin Perrin [place] [facility] [place] [facility] [place] 2 10:54:17 Bilateral tinnitus 9876006546089 Active Erin [place] [facility] [place] [facility] [place] 2 10:54:17 Otitis externa 1047265 Active Erin [place] [facility] [place] [facility] [place] 2 10:54:18 Sensorineur al hearing loss 65458879 Active [place] [facility] [place] 2 10:54:18 Gastroesoph ageal reflux disease 026859347 Active Erin [place] [facility] [place] [facility] [place] 2 10:54:18 Sensorineur al hearing loss of bilateral ears 418082277 Active Erin hall[place] [facility] [place] [facility] [place] 2 10:54:18 Abdominal pain 00424864 Active [place] [facility] [place] [facility] [place] 2 10:54:18 Diabetes mellitus 20493038 Active 2021 Kerry [place] [facility] [place] [facility] [place] 2 11:28:53 Hypertensiv e disorder 19059022 Active 2021 Jaimerajinder [place] [facility] [place] [facility] [place] 2 11:29:35 Acid reflux 695686215 Active 2021 Erin [place] [facility] [place] 2 10:54:18 Asthma 365783927 Active 2021 Erin [place] [facility] [place] 2 10:54:17 Severe chronic obstructive pulmonary disease 168554050 Active 2021 Erin [place] [facility] [place] 2 10:54:18 Benign prostatic hyperplasia 232797532 Active 2021 Corriesherice [place] [facility] [place] 2 11:30:22 Irregular heart beat 505188288 Active 2021 NIKUNJ Camargo [place] [facility] [place] 2 10:54:18 Hypercholes terolemia 38387721 Active 2021 NIKUNJ Mcintosh [place] & [place] 2 11:30:37 Arthritis 6014253 Active 2021 NIKUNJ Camargo [place] & [place] 2 10:54:17 Urinary bladder stone 57630732 Active 2021 NIKUNJ Mcintosh [place] [facility] [place] 2 11:30:55 Prostate specific antigen above reference range 923083706 Active 2021 NIKUNJ Camargo [place] & [place] 2 10:54:17 Notes:Some problems listed i n Document: #[id number] could not be added to this patient's chart. Please review this document and add these problems to the patient's chart manually as needed. Problem Notes None recorded. Procedures Surgical History Date Name Laterality Status Provider Name and Address Organization Details Recorded Time grafting to skin completed Kerry EDWARDS [facility] & [place] 06/26/2022 11:32:00 procedure on knee completed Kerry EDWARDS [facility] & [place] 06/26/2022 11:32:08 Imaging Results None recorded. Procedure Notes None recorded. Medical Equipment None Reported. Allergies No known drug allergies Medications Name Sig Start Date Stop Date Status Note LastModified by Organization Details LastModified Time celecoxib 200 mg capsule 1 {capsule} by oral route. active Not Available Not Available No t Available cyclobenzapr ine 10 mg tablet TAKE ONE TABLET BY MOUTH THREE TIMES DAILY NEEDED FOR SPASM active Not Available Not Available No t Available amoxicillin 500 mg capsule TAKE ONE CAPSULE BY MOUTH THREE TIMES DAILY active Not Available Not Available Not Available atorvastatin 40 mg tablet TAKE ONE TABLET BY MOUTH EVERY EVENING active Not Available Not Available No t Available methocarbamo l 500 mg tablet TAKE 2 TABLETS BY MOUTH EVERY 6 HOURS NEEDED active Not Available Not Available No t Available metformin 500 mg tablet TAKE 2 TabletS by mouth twice daily active Not Available Not Available No t Available promethazine -DM 6.25 mg-15 mg/5 mL oral syrup take 5 ml by mouth every 6 hours as needed for cough/conge stion/drain age active Not Available Not Available No t Available acetic acid 2 % ear solution 5 {drops_into _affected_e ar}s 3 times a day by otic route. 2016 active Not Available Not Available Not Avai lable gabapentin 600 mg tablet take 1 tablet as directed 3 times daily for 30 days active Not Available Not Available Not Available doxycycline hyclate 100 mg capsule TAKE 1 Capsule by mouth twice daily FOR 10 DAYS active Not Available Not Available No t Available ipratropium 0.5 mg-albuterol 3 mg (2.5 mg base)/3 mL nebulization soln USE 3 mL VIA NEBULIZER four times a day As Needed for shortness of breath or wheezing active Not Available Not Available Not Available ibuprofen 800 mg tablet take 1 tablet by MOUTH every 8 hours As needed active Not Available Not Available No t Available tizanidine 4 mg tablet 1 {tablet_as_ needed} 3 times a day by oral route. active Not Available Not Available No t Available hydrocodone 5 mg-acetamino phen 325 mg tablet TAKE 1 Tablet by mouth 3 times daily FOR 5 DAYS active Not Available Not Available N ot Available fluconazole 200 mg tablet take 1 tablet by ORAL route once daily active Not Available Not Available N ot Available meloxicam 15 mg tablet take 1 tablet by mouth 1 time a day active Not Available Not Available N ot Available phenazopyrid ine 200 mg tablet take 1 Tablet by mouth 3 times daily active Not Available Not Available Not Available prednisone 20 mg tablet TAKE 3 TABLETS BY MOUTH ONCE DAILY FOR 5 DAYS active Not Available Not Available No t Available simvastatin 10 mg tablet 1 {tablet_in_ the_evening } by oral route. active Not Available Not Available No t Available amlodipine 2.5 mg tablet TAKE ONE TABLET BY MOUTH ONCE DAILY active Not Available Not Available No t Available ciprofloxaci n 500 mg tablet TAKE ONE TABLET BY MOUTH TWICE DAILY active Not Available Not Available No t Available sulfamethoxa zole 800 mg-trimethop rim 160 mg tablet TAKE ONE TABLET BY MOUTH TWICE DAILY active Not Available Not Available No t Available omeprazole 40 mg capsule,argenis yed release TAKE ONE CAPSULE BY MOUTH EVERY DAY active Not Available Not Available No t Available tramadol 50 mg tablet TAKE 1 TABLET by mouth every 6 hOUrs as needed for pain active Not Available Not Available No t Available fenofibrate micronized 134 mg capsule TAKE ONE CAPSULE BY MOUTH DAILY active Not Available Not Available Not Available meloxicam 7.5 mg tablet TAKE ONE TABLET BY MOUTH TWICE DAILY active Not Available Not Available No t Available carbidopa 25 mg tablet 1 {tablet} 3 times a day by oral route. active Not Available Not Available No t Available methocarbamo l 750 mg tablet TAKE ONE TABLET BY MOUTH THREE TIMES DAILY NEEDED FOR PAIN active Not Available Not Available No t Available trazodone 100 mg tablet TAKE ONE TABLET BY MOUTH DAILY AT BEDTIME NEEDED FOR SLEEP active Not Available Not Available No t Available OneTouch Ultra Test strips USE DIRECTED THREE TIMES DAILY active Not Available Not Available No t Available meclizine 25 mg tablet TAKE 1/2-1 Tablet by mouth every 8 hours active Not Available Not Available No t Available baclofen 10 mg tablet take 1 Tablet by mouth every 8 hours NEEDED FOR headache or muscle pain active Not Available Not Available Not Available cephalexin 500 mg capsule take 2 Capsules by mouth twice daily (10 Days 40 Qty) active Not Available Not Available No t Available Gentle Laxative (bisacodyl) 5 mg tablet,delay ed release Take 2 tablets every day by oral route for 1 day. active Not Available Not Available No t Available promethazine 25 mg tablet take 1 Tablet by mouth every 6 hours as needed for nausea active Not Available Not Available No t Available losartan 25 mg tablet TAKE ONE TABLET DAILY DIRECTED active Not Available Not Available No t Available carbidopa 10 mg-levodopa 100 mg tablet Take 1 tablet by mouth at bedtime active Not Available Not Available No t Available aspirin 81 mg chewable tablet 1 {tablet} by oral route. active Not Available Not Available No t Available diclofenac sodium 75 mg tablet,delay ed release take 1 Tablet by mouth twice daily active Not Available Not Available No t Available montelukast 10 mg tablet take 1 Tablet by mouth daily active Not Available Not Available Not Available hydroxyzine HCl 25 mg tablet TAKE ONE TABLET BY MOUTH EVERY EIGHT HOURS active Not Available Not Available Not Available mupirocin 2 % topical ointment 1 {applicatio n} 3 times a day by topical route. 2019 active Not Available Not Available Not Avai lable metoprolol succinate ER 25 mg tablet,exten ded release 24 hr Take 1 tablet(s) by mouth daily active Not Available Not Available No t Available ibuprofen 600 mg tablet TAKE 1 TABLET BY MOUTH EVERY 6 HOURS NEEDED active Not Available Not Available No t Available polyethylene glycol 3350 17 gram/dose oral powder Take 17 g by oral route for 1 day. active Not Available Not Available No t Available levofloxacin 500 mg tablet TAKE ONE TABLET BY MOUTH DAILY active Not Available Not Available Not Available methylpredni solone 4 mg tablets in a dose pack use as directed on package active Not Available Not Available No t Available cefdinir 300 mg capsule TAKE ONE CAPSULE BY MOUTH TWICE DAILY FOR 10 DAYS active Not Available Not Available No t Available dicyclomine 10 mg capsule TAKE 1 Capsule by mouth every 6 hours NEEDED FOR diarrhea/cr amps active Not Available Not Available No t Available finasteride 5 mg tablet Take 1 tablet every day active Not Available Not Available No t Available glycopyrrola te 2 mg tablet Take 1 Tablet by mouth once a day at bedtime active Not Available Not Available No t Available Ventolin HFA 90 mcg/actuatio n aerosol inhaler INHALE 2 PUFFS four times a day As Needed for shortness of breath or wheezing active Not Available Not Available Not Available meclizine 25 mg chewable tablet 1 {tablet_as_ needed} by oral route. active Not Available Not Available Not Available omeprazole magnesium 20 mg tablet,delay ed release 1 {tablet} by oral route. active Not Available Not Available No t Available alfuzosin ER 10 mg tablet,exten ded release 24 hr take 1 tablet immediately after the same meal Once a day active Not Available Not Available N ot Available topiramate 50 mg tablet Take 1 tablet(s) by mouth at bedtime active Not Available Not Available No t Available lactulose 10 gram/15 mL oral solution take 15 ml by mouth daily active Not Available Not Available No t Available zolpidem ER 6.25 mg tablet,exten ded release,mult iphase Take one when you arrive to sleep lab, may repeat in one hour if needed, with permission from donor center technician. active Not Available Not Available No t Available cholecalcife rol (vitamin D3) 1,250 mcg (50,000 unit) capsule TAKE 1 CAPSULE by mouth once weekly active Not Available Not Available No t Available diclofenac 1 % topical gel apply 5 Gram on skin twice daily active Not Available Not Available No t Available Linzess 145 mcg capsule take 1 capsule by mouth daily active Not Available Not Available Not Available Stiolto Respimat 2.5 mcg-2.5 mcg/actuatio n solution for inhalation inhale 2 puffs daily active Not Available Not Available Not Available OneTouch Ultra2 Meter USE DIRECTED active Not Available Not Available No t Available OneTouch Delica Plus Lancet 33 gauge USE DIRECTED THREE TIMES DAILY active Not Available Not Available No t Available Vitals Date Recorded Body height Body mass index (BMI) Body weight Body temperature Provider Name and Address Organization Details Last Updated DateTime 06/26/2022 167.64 cm 29.4 kg/m2 78116.81 g 97.2 [degF] [facility] [place] 06/26/2022 11:28:06 Date Recorded Body height Body mass index (BMI) Body weight Body temperature Provider Name and Address Organization Details Last Updated DateTime 07/11/2022 167.64 cm 29.4 kg/m2 84290.81 g 97.8 [degF] [facility] [place] 07/11/2022 12:42:50 Social History None recorded. Functional Status Question Answer Note LastModified by Organization D etails LastModified Time What is your level of alcohol consumption? None [email or web address] Information not available 06/26/2022 Mental Status None recorded. Family History Relationship Description Onset Age of this Age Resolved Age Notes LastModified by Organization Details LastModified Time Father Malignant neoplastic disease [email or web address] Not available 2021 11:31:37 Mother Malignant neoplastic disease dec [email or web address] Not available 2021 11:31:37 Brother Malignant neoplastic disease [email or web address] Not available 2021 11:31:37 Medical History No medical history recorded. Past Encounters Encounter ID Performer Location Encounter Start Date Encounter Closed Date Diagnosis/Indication Diagnosis SNOMED-CT Code Diagnosis ICD10 Code Diagnosis IMO Codes Diagnosis Note [id number] Ferny Levin Jr, M.D [facility] [address] [place] [address] 06/26/2022 11:22:41 06/26/2022 12:45:06 Benign prostatic hyperplasia 344502312 N40.1 Retention of urine 65582 4002 R33.9 Prostate s pecific antigen above reference range [id number] R97.20 Microscopic hematuria 19 1171315 R31.29 Erectile dysfunction 860 195103 F52.21 Urinary bladder stone 70 450228 N21.0 Urinary tr act infectious disease [id number] N39.0 [id number] Adi Cote Jr, MD [facility] [address] [facility] NIKUNJ Puri [address] 07/11/2022 12:31:28 07/11/2022 15:03:15 Benign prostatic hyperplasia with outflow obstruction [id number] N40.1 52-year-ol d white male with long history of urinary difficulty . Recent cystoscopy shows trilobar hyperplasi a. Bladder scan today shows a 366 cc residual. Patient has had to intermitte ntly cath at times over the past 3 Or 4 years. He is currently on alpha-bloc ker therapy with continued urinary difficulti es. We discussed treatment options of which TURP is favors. We discussed the operative procedure and complicati ons. He is a little reluctant to undergo any surgical procedures and after some discussion with his he would like to proceed. We will set this up in the near future. Prostate s pecific antigen above reference range [id number] R97.20 patient's PSA has been elevated dating back to 2019. given his urinary symptoms this is likely due to BPH. We discussed that the TURP is allowing us to look at the prostate specimen to determine if Prostate cancer is present. [id number] ANNALISA DUNCAN ENT Associate s of [facility] [id number] [address] [facility], [facility] [address] 10/29/2023 09:04:33 10/29/2023 09:22:37 Sensorineural hearing loss [id number] H90.3 Health Concerns Section Related Observation LastModified by Organization Detai ls LastModified Time None Recorded Concern Status LastModified by Organization Details LastModified Time None Recorded Advance Directives Directive None Recorded Payers Insurance Date Sequence Insurance Name Policy Number Policy Ocampo Covered Member ID Ocampo Member ID Guarantor Name 10/29/2023 1 [facility] (MEDICAID REPLACEMENT - HMO) NIKUNJ Gill [id number] Christoph Gill 04/18/2024 1 [facility] (MEDICAID REPLACEMENT - HMO) Christoph Gill [id number] Christoph Gill 10/29/2023 1 MEDICAID-[facility] HEALTH CHOICES - FFS/TRADITIONA L Christoph Gill [id number] Christoph Gill 10/29/2023 2 [facility] (MEDICAID REPLACEMENT - HMO) Christoph Gill [id number] Christoph Gill Notes Date Note Type Note Provider Name and Address Organization Details Recorded Time 06/26/2022 text/html ROS as noted in the HPI Urine Retention: He comes with a nelson catheter. He was not able to void 06/21 and romulo to the ER. a Nelson catheter was inserted and he had a large residual urine. Was felt he had a urinary tract infection but the cultures returned negative. A month ago he had nocturia x1. He did have some dysuria. Otherwise he denies urinary hesitation, intermittency, hematuria, urgency to void, weak stream, or feeling of incomplete emptying of the bladder. He has been taking Flomax since the ER visit. Patient has diabetes. 04/20 the patient's history was that he was having significant problems voiding that he denies today. He denies impotence but gave a positive history for impotence 04/20.BPH: He was referred 04/20 with enlarged prostate. By ALICIA his prostate was 35 g 04/20. He has urine hesitation, weak stream and dysuria for 1.5 years. He has been treated with antibiotics that helps for short time. He has nocturia x 2. During the day he gets urge to void every 90 minutes. He has feeling of urgency with occasional UUI. He uses caffeine. At one time he had a bladder stone and underwent lithopaxy. His PSA 2019 was 5.5. He may benefit with Proscar after the repeat PSA in a month..Elevated PSA: he does not keep timely appointments. The patient's PSA 04/20 was elevated to 7.8. His PSA was 5.5 On . He was set for TRUS but was lost to follow up..Urine Retention: In 2018 he was carrying a 400 cc PVR. He occasionally does intermittent cath. This happens about once a month he said 04/20..Impotence: He has unreliable erection but says she is fine leaving that along. He is diabetic. This also is a different account today that his record shows. Ferny Levin Jr, M.D [address] [facility], [address], [place], [address], [facility] & [place] 06/27/2022 06:55:18 07/11/2022 text/html Patient is a 52-year-old white male with recent urinary retention. Patient went to emergency room last month and Nelson catheter was placed with a large residual urine. He has had urinary difficulty since at least 2018. cystoscopy was performed by Dr. meraz his last visit a month ago. 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 There was mild trabeculation and small bladder concretions noted. Residual urine today is 366 cc after a 2nd voiding attempt. Patient states that he has had to self-catheterize in the past and still catheterizes on a p.r.n. basis. He is currently on alfuzosin. Does have a history of valvular disease and sees Cardiology in [place], [place].Patient also has a history of elevated PSA. His PSA in 2019 was 5.5. Most recent PSA in March 2022 was 7.8. He has not had a prostate biopsy. Adi Cote Jr, MD [address] [facility], [address], [place], [address], [facility] [place] 07/11/2022 15:53:58 10/29/2023 text/html Mr. Gill was seen today for a hearing aid discussion. Will check with insurance to check on hearing aid benefits. ARIELLE THEODORE, AUD [address] [facility], [place], [address], [facility] [place] 10/29/2023 09:35:01
--- OUTSIDE RECORDS SUMMARY | 2025-08-05 10:53 | XMS_ITS | Encounter Summary ---
[facility] Address [address] [place] [address] Care Team Providers Care Aboriginal Community Council Member Name Role Phone Doron Aparicio MD Primary Care Provider [phone] Reason for Visit * Reason Onset Date Comments Fouzia Tinoco APRN- MISSED CALL 11/2024 Encounter Details Date Type Department Care Team (Late st Contact Info) Description 08/02/2025 Telephone [facility] [address] [place] [address] Fouzia Tinoco APRN [address] [place], [place] [id number] Fouzia Tinoco APRN- MISSED CALL Social History Tobacco Use Types Packs/Day Years Used Date Smoking Tobacco: Former Cigarettes 30 973 - 2002 Passive Smoke Exposure: Current Smokeless Tobacco: Never Alcohol Use Standard Drinks/Week Comments Defer 0 (1 standard drink = 0.6 oz pur e alcohol) Sex and Gender Information Value Date Recorded Sex Assigned at Not on file Legal Sex Male 9:23 AM EDT Gender Identity Not on file Sexual Orientation Not on file documented as of this encounter Miscellaneous Notes * Telephone Encounter - Yusra Toledo RN - 08/02/2025 3:59 PM EST LVM message for pt possibly to remind of follow up on 08/11/25. * Telephone Encounter - Amanda Martinez RegSched Rep - 08/02/2025 3:44 PM EST Caller: JairoChristoph Relationship: Self Best call back number: [phone] What is the best time to reach you: ANY What was the call regarding: PT REPORTS THAT THEY WERE GIVEN A CALL BUT THERE IS NO DOCUMENTATION IN THE CHART ABOUT THIS. IF THIS WAS NOT A MISTAKE, PLEASE CALL PT BACK. Is it okay if the provider responds through MyChart: CALL documented in this encounter Plan of Treatment Upcoming Encounters Date Type Department Care Team (Late st Contact Info) Description 08/11/2025 11:30 AM EST Office Visit [facility] [address] [place] [address] Fouzia Tinoco APRN [address] [place] [address] documented as of this encounter Visit Diagnoses Not on filedocumented in this encounter Care Teams Aboriginal Community Council Member Relationship Specialty Start Date End Date Doron Aparicio MD [address] [place] [address] PCP - General Family Medicine 04/16/23 documented as of this encounter
--- OUTSIDE RECORDS SUMMARY | 2025-08-05 10:53 | XMS_ITS | Clinical Summary ---
[facility] Address [address] [place] [address] Care Team Providers Care Auto Self Service Station Attendant Name Role Phone Doron Aparicio MD Primary Care Provider [phone] Allergies Active Allergy Reactions Criticality Noted Date [...] 3 Active Cholecalciferol (Vitamin D3) 1.25 MG (96271 UT) capsule Take 1 capsule by mouth [...] FIFTY)] 3 Active Lancets (OneTouch Delica Plus [id number]) misc 3 (Three) Times a Day. as [...] completed and given to Irena at front facer. Dental caries 10/22/2023 Lung nodule 10/22/2023 Mediastinal [...] he had labs 3 weeks ago at [facility]. Will try to get a copy of [...] Encounters Date Type Department Care Team Description 08/02/[address] [facility] [address] [place] [address] Fouzia Tinoco APRN Schneider, Autumn Brooke, APRN- MISSED CALL from Last 3 Months Family History Medical History Relation Name Comments Heart attack Father Relation Name Status Comments Brother 2 Alive Father Mother Sister 3 Alive Social History Tobacco Use Types Packs/Day Years Used Date Smoking Tobacco: Former Cigarettes 1 30 1 973 - 2003 Passive Smoke Exposure: Current Smokeless Tobacco: Never [...] Description 08/11/2025 11:30 AM EST Office Visit [facility] [address] [place] [address] Fouzia Tinoco APRN [address] [place] [address] Health Maintenance Due Date Last Done Comments DIABETIC EYE EXAM 1979 DIABETIC FOOT EXAM 1979 URINE MICROALBUMIN-CREATININE RATIO (uACR) 1979 Hepatitis B (1 of 3 - 19+ 3-dose series) 1988 Pneumococcal Vaccine 50+ (1 of 2 - PCV) 1988 TDAP/TD VACCINES (1 - Tdap) 1988 COLOGUARD 2014 COLON CANCER SCREENING 5 YEAR SIGMOIDOSCOPY 2014 COLONOSCOPY 2014 [address]AL CANCER SCREENING 2014 CT COLONOGRAPHY 2014 FECAL OCCULT BLOOD TEST 2014 FIT Testing (1 year) 2014 ANNUAL PHYSICAL 01/17/2017 HEPATITIS C SCREENING 01/17/2017 ZOSTER VACCINE (1 of 2) 2019 HEMOGLOBIN A1C 11/23/2023 05/23/2023 LIPID PANEL 05/23/2024 05/23/2023 INFLUENZA VACCINE 04/30/2025 11/20/2024 Procedures Procedure Name Priority Date/Time Associated Diagnosis Comments HEMOGLOBIN A1C Routine 05/23/2023 EVELIO (obstructive sleep apnea) LIPID PANEL Routine 05/23/2023 EVELIO (obstructive sleep apnea) from Last 3 Months or Most Recently Relevant to Health Maintenance Results * Hemoglobin A1c (05/23/2023) Blood Fouzia Tinoco WARP SPOOLER LAB BLOOD ORDERABLE S Final Result Performing Organization Address City/[facility] Co de Phone Number [facility] [address] [place] [address], [place] [phone] * Lipid Panel (05/23/2023) Blood Fouzia Tinoco WARP SPOOLER LAB BLOOD ORDERABLE S Final Result Performing Organization Address [facility] Co de Phone Number [facility] (AMBULATORY) [address] [place] [address], [place] [phone] from Last 3 Months or Most Recently Relevant to Health Maintenance Insurance [employer] MEDICAID [place] Care Teams Auto Self Service Station Attendant Relationship Specialty Start Date End Date Doron Aparicio MD [address] [place] [address] [place] [address] PCP - General Family Medicine 04/16/23
== END 2025-08-05 23:59 | disposition home or self-care (01) ==
LOC: LAB 10:43
PROVIDERS: PCP Family Medicine; Visit Provider Internal Medicine Pulmonary Disease
DX: J98.4 Other disorders of lung (principal); R91.8 Other nonspecific abnormal finding of lung field
CPT/HCPCS: 87070; 87101; 87116; 87186; 87205

== ENCOUNTER 2025-08-06 15:13 | Outpatient (CLI) | payer MEDICAID, SELFPAY ==
--- OUTSIDE RECORDS SUMMARY | 2025-08-06 15:15 | XMS_ITS | Encounter Summary ---
[facility] Address [address] [place] [address] Care Team Providers Care Spinner Fixer Name Role Phone Doron Aparicio MD Primary Care Provider [phone] Reason for Visit * Reason Comments Med Refill Encounter Details Date Type Department Care Team (Late st Contact Info) Description 05/17/2023 Refill [facility] [address] [address] Kelsie Landeros, DIRECTOR OF RESIDENTIAL SERVICES Med Refill Social History Tobacco Use Types [...] Description 08/11/2025 11:30 AM EST Office Visit [facility] [address] [place] [address] Fouzia Tinoco APRN [address] [place] [address] documented as of this encounter Visit Diagnoses Not on filedocumented in this encounter Care Teams Spinner Fixer Relationship Specialty Start Date End Date Doron Aparicio MD [address] [place] [address] PCP - General Family Medicine 04/16/23 documented as of this encounter
--- OUTSIDE RECORDS SUMMARY | 2025-08-06 15:15 | XMS_ITS | Encounter Summary ---
Author Organization [facility] Address [address] [place] [address] Care Team Providers Care Seo Engineer Name Role Phone Doron Apaircio MD Primary Care Provider [phone] Reason for Visit * Reason Onset Date Comments Fouzia Tinoco APRN- MISSED CALL 11/2024 Encounter Details Date Type Department Care Team (Late st Contact Info) Description 08/02/2025 Telephone [facility] [address] [place] [address] Fouzia Tinoco APRN [address] [place], [place] [phone] Fouzia Tinoco APRN- MISSED CALL Social History [...] JairoChristoph Relationship: Self Best call back number: [phone] What is the best time to reach [...] Description 08/11/2025 11:30 AM EST Office Visit [facility] [address] [place] [address] Fouzia Tinoco APRN [address] [place] [address] documented as of this encounter Visit Diagnoses Not on filedocumented in this encounter Care Teams Seo Engineer Relationship Specialty Start Date End Date Doron Aparicio MD [address] [place] [address] PCP - General Family Medicine 04/16/23 documented as of this encounter
--- OUTSIDE RECORDS SUMMARY | 2025-08-06 15:15 | XMS_ITS | Clinical Summary ---
Author Organization [facility] Address [address] [place] [address] Care Team Providers Care Circulation Assistant Name Role Phone Doron Aparicio MD Primary Care Provider [phone] Allergies Active Allergy Reactions Criticality Noted Date [...] 3 Active Cholecalciferol (Vitamin D3) 1.25 MG (08643 UT) capsule Take 1 capsule by mouth [...] FIFTY)] 3 Active Lancets (OneTouch Delica Plus [id number]) misc 3 (Three) Times a Day. as [...] and given to Irena at front desk specialist. Dental caries 10/22/2023 Lung nodule 10/22/2023 Mediastinal [...] he had labs 3 weeks ago at [facility]. Will try to get a copy of [...] Type Department Care Team Description 08/02/2025 Telephone [facility] [address] [address] Fouzia Tinoco APRN Schneider, Autumn Brooke, APRN- [...] 08/11/2025 11:30 AM EST Office Visit [facility] [address] [place] [address] Fouzia Tinoco APRN [address] [place] [address] Health Maintenance Due Date Last [...] * Hemoglobin A1c (05/23/2023) Blood Fouzia Tinoco MOTOR WINDER LAB BLOOD ORDERABLE S Final Result Performing Organization Address City/[facility] Co de Phone Number [facility] [address] [place] [address], [place] [phone] * Lipid Panel (05/23/2023) Blood Fouzia Tinoco [employer] W[employer]ER LAB BLOOD ORDERABLE S Final Result Performing Organization Address [facility] Co de Phone Number [facility] (AMBULATORY) [address] [place] [address], [place] [phone] from Last 3 Months or Most Recently Relevant to Health Maintenance Insurance [employer] [place]ICAID [place] Care Teams Circulation Assistant Relationship Specialty Start Date End Date Doron Aparicio MD [address] [place] [address] [place] [address] PCP - General Family Medicine 04/16/23
--- NOTE | 2025-08-06 15:30 | CT_ITS ---
FINAL REPORT TECHNIQUE: Axial images were obtained through the chest without contrast. Multiplanar reconstructions in the sagittal and coronal planes were performed. This study was performed with techniques to keep radiation doses as low as reasonably achievable (ALARA). Individualized dose reduction techniques using automated exposure control or adjustment of mA and/or kV according to the patient's size were employed. CLINICAL HISTORY: nodule pt wasn't sure where the nodule(s) is COMPARISON: Prior LDCT 04/26/2025 FINDINGS: CT CHEST: There are a few scattered mediastinal lymph nodes present, as well as calcified right hilar nodes. Moderate changes of centrilobular emphysema are present. No confluent infiltrates or effusions are identified. No pericardial effusion is noted. There is a small possibly cavitary anterior right upper lobe nodule which is no longer seen. There is a small linear focus on image #78 of series 3 that corresponds to this location. There is a stable right major fissure nodule, 6 mm in size, best seen on image #113 of series 3. There are a few tiny cavitary nodules not seen on the prior exam. There is a tiny cavitary right perihilar 4 mm nodule, best seen on image #109 of series 3. There is also a 3 mm density in the posterior right upper lobe, best seen on image #55 of series 3. IMPRESSION: Several previously seen nodules are either stable or no longer visualized on the current examination when compared to the prior exam of 04/26/2025. There are at least two 4 mm or less in size nodules which are new since the prior exam. Favor that these are postinflammatory, however recommend CT of the chest follow-up in 3 months to reevaluate. Reviewed, Interpreted and Dictated by Franky Wing MD Transcribed by Sandhya Lenz Authenticated and . [facility]
== END 2025-08-06 23:59 | disposition home or self-care (01) ==
PROVIDERS: PCP Family Medicine; Visit Provider Internal Medicine Pulmonary Disease
DX: R91.8 Other nonspecific abnormal finding of lung field (principal)
CPT/HCPCS: 71250